=== PATIENT | female | born 1955 | race African-American/Black ===

== ENCOUNTER → 2017-01-01 | Day surgery (SDC) | payer MEDICARE, OTHER ==
[~2017-01-01] MED LIST: ADVAIR; ADVAIR 2501 DISK W/D PO; ALBUTEROL17 GM INH; AMARYL PO; AMARYL1 MG PO; AMARYL2 MG; AMARYL2 MG PO; AMLODIPINE BESY10 MG PO; ASPIRIN PO; ASPIRIN81 MG PO; BAYER CHEWABLE81 MG PO; CAPOTEN12.5 MG DOB; CARAFATE1 GM PO; CATAFLAM50 MG PO; CLOPIDOGREL75 MG PO; COREG3.125 MG PO; CRESTOR40 MG PO; CYCLOBENZAPRINE5 MG PO; DIABETIC MED PO; DIOVAN PO; DIOVAN160 MG PO; DULCOLAX10 MG/SUPP RC; EFFEXOR; EFFEXOR PO; EFFEXOR75 M2 PO; EFFIENT10 MG PO; FARXIGA5 MG PO; GABAPENTIN300 MG PO; GLUCOPHAGE500 M1 PO; GLUCOTROL PO; HYDROCHLOROTH12.5 M1 PO; HYDROCHLOROTHIA25 MG PO; IMDUR-ER30 M2 PO; JANUVIA PO; JANUVIA25 MG PO; LACTULOSE10 G/15 M1 PO; LAMISIL250 MG PO; LANTUS SOLOSTAR3 ML SUBQ; LIPITOR40 MG PO; METFORMIN HCL500 M1 PO; METFORMIN PO; NEURONTIN300 MG PO; NITROGLYCERIN0.4 MG SL; NITROGYLCERIN SUBLINGUAL; NORVASC PO; NORVASC10 MG PO; OMEPRAZOLE PO; OMEPRAZOLE40 M1 PO; PAXIL; PAXIL PO; PLAVIX PO; POTASSIUM PO; PROTONIX PO; PROTONIX20 MG PO; RANEXA500 MG PO; REGLAN5 MG PO; SYNTHROID PO; SYNTHROID0.05 MG DOB; SYNTHROID25 MCG PO; TOPROL XL 50 MG50 M1 PO; TOPROL XL 50 MG50 MG PO; TOPROL XL PO; TOUJEO SOL300 UNIT/1 SUBQ; TRIAMTERENE-HCT1 TA6 PO; TRIAMTERENE-HCT1 TA8 PO; TRIAMTERENE/HCTZ PO; VALSARTAN160 MG PO; VYTORIN 10-40 M1 TAB PO; VYTORIN PO; XIGDUO; XIGDUO PO; ZANTAC PO; ZESTRIL5 MG PO; ZETIA PO; ZOFRAN ODT4 MG PO; ZOFRAN PO; [UNRECOGNIZED DRUG - OTHER] PO
--- NOTE | ~2017-01-01 | OR ---
Unit #: [id number] #: [id number] Patient: LIZZIE ROBLEDO [id number] [address] [address] [id number] O MR#: [id number] NAME: LIZZIE ROBLEDO. ROOM: Date of Procedure: 01/01/2017 Admission Date: 01/01/2017 Surgeon: Rakesh Vickers M.D. : 1955 Attending Physician: Rakesh Vickers M.D. Primary Care Physician: Dallas Landeros M.D. OPERATIVE REPORT PREOPERATIVE DIAGNOSES Colorectal cancer surveillance. The patient has personal history of colonic polyps. PROCEDURES PERFORMED Colonoscopy and polypectomy. POSTOPERATIVE DIAGNOSES 1. Single sessile polyp in the mid ascending colon. The latter was removed using snare polypectomy. 2. Mild sigmoid and descending colon diverticulosis. 3. Rest of the examination up to cecum was normal. The quality of the prep was fair. RECOMMENDATIONS 1. Repeat colonoscopy in 5 years. 2. Follow up the results of polyp histology. SEDATION USED MAC. DESCRIPTION OF PROCEDURE Following detailed explanation of potential risks and complications of a colonoscopy, namely perforation, bleeding, and complication related to sedation, the patient was brought to GI lab and laid in the left lateral decubitus position. A digital rectal examination was performed, which was normal. Lubricated tip of the Olympus video colonoscope was inserted through the anus and advanced under direct vision. The scope was advanced past rectosigmoid into descending colon. Scant small diverticula were seen in this area. The scope tip was then navigated all the way up to cecum with visualization of the ileocecal valve and the appendiceal orifice. Preparation was fair with good visualization and photodocumentation was obtained. Successive segments of the colonic mucosa were examined upon withdrawal. Single small sessile polyp was noted in the mid ascending colon. This was about 5 mm in size. It was removed using snare polypectomy. The polyp was retrieved and sent for histology. No additional polyps were noted. Other than the scant diverticula seen on the left side, no other abnormalities were found. The patient did not have any hemorrhoids at anal verge. The scope was then withdrawn and the patient returned to the recovery area. She tolerated the procedure without any postprocedure complications. Unit #: [id number] #: [id number] Patient: LIZZIE ROBLEDO Dictated by... Helen Parra/camacho TD: 01/01/2017 13:22 JOB #: [id number] OPERATIVE REPORT X Rakesh Vickers MD X PROCEDURE OPERATIVE NOTE
== END | disposition home or self-care (01) ==
LOC: COPS 08:42
DX: Z12.11 Encounter for screening for malignant neoplasm of colon (principal); D12.2 Benign neoplasm of ascending colon; K57.30 Diverticulosis of large intestine without perforation or abscess without bleeding; E11.9 Type 2 diabetes mellitus without complications; E03.9 Hypothyroidism, unspecified; E78.5 Hyperlipidemia, unspecified; I11.0 Hypertensive heart disease with heart failure; I50.9 Heart failure, unspecified; J45.909 Unspecified asthma, uncomplicated; Z86.010 Personal history of colon polyps; Z91.040 Latex allergy status; Z79.4 Long term (current) use of insulin; Z79.82 Long term (current) use of aspirin; Z79.899 Other long term (current) drug therapy; Z95.5 Presence of coronary angioplasty implant and graft; Z98.84 Bariatric surgery status; Z90.710 Acquired absence of both cervix and uterus; Z86.73 Personal history of transient ischemic attack (TIA), and cerebral infarction without residual deficits
CPT/HCPCS: 82947; 88305; J2250

== ENCOUNTER → 2017-01-17 | Outpatient (CLI) | payer MEDICARE, OTHER ==
--- NOTE | ~2017-01-17 | MR17 ---
[facility] A Service of [facility] & [facility] RADIOLOGY TEXT RESULTS PATIENT: LIZZIE ROBLEDO LOCATION: [facility] : 53 UNIT #: [id number] AGE: [address]: Parker Watkins II, MD SEX: F ORDER DR: [id number] [facility] [address] [place], [place] [address] [id number] O MR#: [id number] Acc #: [id number] NAME: LIZZIE ROBLEDO. : 1955 SEX: F STUDY DATE/TIME: 01/17/2017 9:11 UNIT: [facility] ROOM: STUDY DESCRIPTION: MR Brain WWo Contrast Attending Physician: Parker Watkins II., M.D. Referring Physician: Parker Watkins II., M.D. Ordering Physician: Parker Watkins II., M.D. Primary Care Physician: Mo Mcmahon M.D. MRI CENTER REPORT This report is preliminary unless electronic signature is present. EXAM MRI of the brain with and without contrast dated 01/17/2017 COMPARISON MRI brain without contrast dated 09/25/2016. HISTORY Migraine headaches for 6-7 years. FINDINGS Multisequence, multiplanar imaging of the brain was obtained with and without contrast. GFR measured greater than 60. 17 mL of MultiHance was administered intravenously. No acute stroke, space-occupying intracranial mass, mass effect, midline shift or hydrocephalus. Scattered few hyperintense T2-signal lesions are noted in the subcortical white matter and periventricular white matter particularly in bifrontal lobes. They are probably stable. Some of the mild changes are likely related to difference in slice selection. No acute stroke, hydrocephalus, hemorrhage, enhancing mass or midline shift. Thin coronal T2 sequence through the hippocampal formation does not demonstrate any significant abnormality. Visualized sella with the pituitary gland and pineal region are unremarkable. The left maxillary antrum is asymmetrically smaller when compared to the right and is completely opacified. Cataract surgery is seen in the right. Mastoid air cells are well-aerated. IMPRESSION 1. Scattered nonspecific nonenhancing hyperintense T2-signal lesions are noted in the white matter, likely related to mild to moderate chronic microvascular ischemic change or migraine given the history. 2. Asymmetrical decreased caliber of the left maxillary antrum is noted with complete opacification. It is likely related to chronic maxillary sinusitis and hypoplastic sinus/silent sinus syndrome, benign entity. [facility]. [facility] A Service of [facility] & [facility] RADIOLOGY TEXT RESULTS PATIENT: LIZZIE ROBLEDO LOCATION: [facility] : 54 UNIT #: [id number] AGE: [address]: Parker Watkins II, MD SEX: F ORDER DR: Dictated by... Cesar Elizabeth M.D. THIS IS AN ELECTRONICALLY VERIFIED REPORT Cesar Elizabeth M.D. at 01/19/2017 3:50 PM CPR/mjs TD: 01/18/2017 13:31 JOB #: [id number] MRI CENTER REPORT COPY
[2017-01-17 15:37] LABS: POC - CREATININE 0.83 mg/dL (0.44-1.03); POC - GFR >60.0 mL/min (>60)
== END | disposition home or self-care (01) ==
LOC: CMRI 08:34
PROVIDERS: Psychiatry & Neurology Neurology
DX: G43.109 Migraine with aura, not intractable, without status migrainosus (principal); G93.89 Other specified disorders of brain; J34.89 Other specified disorders of nose and nasal sinuses
CPT/HCPCS: 70553; 82565; A9577

== ENCOUNTER → 2017-01-22 | Outpatient (CLI) | payer MEDICARE, OTHER ==
--- NOTE | ~2017-01-22 | CR63 ---
[facility] A Service of [facility] & [facility] RADIOLOGY TEXT RESULTS PATIENT: LIZZIE ROBLEDO LOCATION: [facility] : 53 UNIT #: [id number] AGE: [address]: Madalyn Bella SEX: F ORDER DR: [id number] [facility] [address] [place], [place] [address] [id number] O MR#: [id number] Acc #: [id number] NAME: LIZZIE ROBLEDO. : 1955 SEX: F STUDY DATE/TIME: 01/22/2017 12:43 UNIT: [facility] ROOM: STUDY DESCRIPTION: CR Chest 2 View Attending Physician: Madalyn Bella A.P.R.N. Referring Physician: Madalyn Bella A.P.R.N. Ordering Physician: Madalyn Bella A.P.R.N. Primary Care Physician: Mo Mcmahon M.D. MEDICAL IMAGING REPORT This report is preliminary unless electronic signature is present EXAM PA and lateral chest, 01/22. COMPARISON 11/14/2016 HISTORY Right-sided chest pain and shortness of breath and cough for 3 weeks. TECHNIQUE PA and lateral views are obtained. FINDINGS The cardiovascular configuration of the chest remains normal. Lungs are clear. Compared with the studies of November 14, there has been no change. CONCLUSION No active disease. Dictated by... Tremayne Garcia M.D. THIS IS AN ELECTRONICALLY VERIFIED REPORT Tremayne Garcia M.D. at 01/23/2017 8:00 AM CAEMRON/chano TD: 01/22/2017 15:52 JOB #: [id number] MEDICAL IMAGING REPORT COPY
== END | disposition home or self-care (01) ==
LOC: CRAD 12:28
DX: R07.89 Other chest pain (principal); R06.02 Shortness of breath; G47.33 Obstructive sleep apnea (adult) (pediatric)
CPT/HCPCS: 71020

== ENCOUNTER 2017-01-27 16:51 | Emergency (ER) | payer MEDICARE, OTHER ==
--- NOTE | ~2017-01-27 | CR72 ---
[facility] A Service of [facility] RADIOLOGY TEXT RESULTS PATIENT: LIZZIE ROBLEDO LOCATION: [facility] : 54 UNIT #: [id number] AGE: [address]: Nieves Watson MD SEX: F ORDER DR: [id number] [facility] [address] [place], [place] [address] [id number] E MR#: [id number] Acc #: [id number] NAME: LIZZIE ROBLEDO. : 1955 SEX: F STUDY DATE/TIME: 01/27/2017 17:23 UNIT: [facility] ROOM: STUDY DESCRIPTION: CR Chest Single View Portable Attending Physician: Nieves Watson M.D. Ordering Physician: Nieves Watson M.D. Primary Care Physician: Mo Mcmahon M.D. MEDICAL IMAGING REPORT This report is preliminary unless electronic signature is present EXAM Portable chest, 01/27/2017 HISTORY Right lung pain off and one view for 2 weeks. Short of air. Pain at the top of the left lung. COMMENT Single frontal portable view of the chest timed 17:23 01/27/2017, compared to a study from 01/22/2017. There is postoperative change upper abdomen. Lung volumes are low and mildly diminished with a small amount of airspace disease at bases fairly linear bilaterally and probably some atelectasis. No acute congestive failure. Cardiac silhouette size is top normal. No pneumothorax. No pleural effusion. IMPRESSION Probably some mild bibasilar atelectasis with lower lung volumes when comparison is made to 01/22/2017. Dictated by... Lo Figueroa M.D. THIS IS AN ELECTRONICALLY VERIFIED REPORT Lo Figueroa M.D. at 01/29/2017 7:45 AM ERMA/chano TD: 01/28/2017 21:47 JOB #: [id number] [facility] A Service of [facility] RADIOLOGY TEXT RESULTS PATIENT: LIZZIE ROBLEDO LOCATION: [facility] : 53 UNIT #: [id number] AGE: [address]: Nieves Watson MD SEX: F ORDER DR: MEDICAL IMAGING REPORT COPY
--- NOTE | ~2017-01-27 | CT16 ---
[facility] A Service [facility] RADIOLOGY TEXT RESULTS PATIENT: LIZZIE ROBLEDO LOCATION: [facility] : 53 UNIT #: [id number] AGE: [address]: Nieves Watson MD SEX: F ORDER DR: [id number] [facility] [address] [place], [place] [address] [id number] E MR#: [id number] Acc #: [id number] NAME: LIZZIE ROBLEDO. : 1955 SEX: F STUDY DATE/TIME: 01/27/2017 18:41 UNIT: [facility] ROOM: STUDY DESCRIPTION: CT Angio Chest for PE Attending Physician: Nieves Watson M.D. Ordering Physician: Nieves Watson M.D. Primary Care Physician: Mo Mcmahon M.D. MEDICAL IMAGING REPORT This report is preliminary unless electronic signature is present EXAM CT angiogram chest with IV contrast, 01/27/2017 HISTORY Shortness of air and cough for 3 weeks. Chest pain. Elevated D-dimer. TECHNIQUE This CT exam was performed with one or more of the following radiation dose reduction techniques: automatic exposure control, adjustment of mA and/or kV according to patient size, and iterative reconstruction. FINDINGS IV contrast enhanced CT angiogram of the chest was performed with 3-D reconstructions. No pulmonary infiltrates or effusions. No pulmonary embolus is identified but sensitivity is limited by contrast bolus timing, with limited evaluation of the peripheral lower lobe pulmonary arteries. Normal-caliber pulmonary arteries. Normal caliber thoracic aorta. No adenopathy. No pericardial thickening or effusion. Small hiatal hernia. Postop changes of gastric bypass surgery, partly visualized. IMPRESSION 1. No acute findings are identified. No evidence of active disease. 2. No pulmonary embolus is demonstrated, but sensitivity is partly limited by contrast bolus timing with suboptimal opacification of the peripheral lower lobe pulmonary arteries. 3. Normal caliber pulmonary arteries bilaterally. 4. Lungs are clear. Dictated by... Kade Weller M.D. [facility] A Service of [facility] RADIOLOGY TEXT RESULTS PATIENT: LIZZIE ROBLEDO [id number] 53 UNIT #: [id number] AGE: [address]: Nieves Watson MD SEX: F ORDER DR: THIS IS AN ELECTRONICALLY VERIFIED REPORT Kade Weller M.D. at 01/29/2017 12:25 PM DFDel/chano TD: 01/29/2017 00:43 JOB #: [id number] MEDICAL IMAGING REPORT COPY
[2017-01-27 17:19] LABS: BASOPHIL% 0.4 % (0-2.5); EOSINOPHIL# 0.1 X10e3 (0-0.7); EOSINOPHIL% 1.1 % (0.0-7.0); HEMATOCRIT 39.8 % (35.0-45.0); HEMOGLOBIN 12.6 gm/dL (12.0-16.0); LYMPHOCYTE# 1.6 X10e3 (1.0-3.5); LYMPHOCYTE% 28.6 % (17.0-45.0); MEAN CELL VOLUME 81.8 FL (83-96); MEAN CORPUSCULAR HEMOGLOBIN 25.9 PG (28-34); MEAN CORPUSCULAR HGB CONC 31.6 g/dL (30-36); MEAN PLATELET VOLUME 9.3 FL (6.5-11.5); MONOCYTE# 0.5 X10e3 (0-1.0); MONOCYTE% 8.5 % (3.0-12.0); NEUTROPHIL# 3.5 X10e3 (1.5-7.1); NEUTROPHIL% 61.4 % (40-75); PLATELET COUNT 231 X10e3 (140-420); RED BLOOD COUNT 4.87 X10e (3.90-5.30); RED CELL DISTRIBUTION WIDTH 14.8 % (11.0-15.5); WHITE BLOOD COUNT 5.7 X10e3 (4.0-10.5)
[2017-01-27 17:20] LABS: DIFF IND NO
[2017-01-27 17:42] LABS: BLOOD UREA NITROGEN 11 mg/dL (9-23); BUN/CREATININE RATIO 12.22; CALCIUM SERUM 8.9 mg/dL (8.4-10.2); CARBON DIOXIDE 30 mmol/L (22-31); CHLORIDE 103 mmol/L (100-111); CREATININE SERUM 0.9 mg/dL (0.6-1.4); GLOM FILT RATE Estimated ABOVE60 mL/min (>60); GLUCOSE FASTING 119 mg/dL (70-110); POTASSIUM 3.6 mmol/L (3.5-5.1); SODIUM 140 mmol/L (135-145)
== END 2017-01-27 20:30 | disposition home or self-care (01) ==
LOC: CED 16:51
PROVIDERS: Emergency Medicine
DX: R09.1 Pleurisy (principal)
CPT/HCPCS: 36415; 71010; 71275; 80048; 85025; 85379; 99284; Q9967

== ENCOUNTER → 2017-04-24 | Outpatient (CLI) | payer OTHER, MEDICARE ==
--- NOTE | ~2017-04-24 | MY11 ---
[facility] A Service of [facility] RADIOLOGY TEXT RESULTS PATIENT: LIZZIE ROBLEDO LOCATION: [facility] : 53 UNIT #: [id number] AGE: [address]: Mo Mcmahon MD SEX: F ORDER DR: [id number] [place] [id number] O MR#: [id number] Acc #: [id number] NAME: LIZZIE ROBLEDO : 1955 SEX: F STUDY DATE/TIME: 04/24/2017 8:59 UNIT: [facility] ROOM: STUDY DESCRIPTION: MY Mammogram Screening Dig Holger Attending Physician: Mo Mcmahon M.D. Referring Physician: Mo Mcmahon M.D. Ordering Physician: Mo Mcmahon M.D. Primary Care Physician: Mo Mcmahon M.D. MEDICAL IMAGING REPORT This report is preliminary unless electronic signature is present. EXAM Digital screening mammogram 04/24/2017 [facility] HISTORY 62-year-old woman positive family history, mother age 70. Annual screen. COMPARISON Mammograms date to 05/29/2008 with most recent screening comparison 03/06/2016 FINDINGS Digital imaging of each breast was completed utilizing a two-view examination of each breast in craniocaudal and mediolateral-oblique projections. Review and interpretation of digital mammograms include a second review in conjunction with FDA-approved CAD device. There is a normal parenchymal presentation bilaterally consistent with the patient's age. There are no breast masses imaged and no parenchymal asymmetry is visualized. There are no suspicious microcalcifications and I see no focal architectural disturbance. IMPRESSION Negative screening digital mammogram. One-year followup recommended. Patients over the age of 40 are entered into a reminder system with target due date for the next mammogram. A result letter will also be sent to the patient. BIRADS: 1 Negative Dictated by... [facility] A Service of [facility] RADIOLOGY TEXT RESULTS PATIENT: LIZZIE ROBLEDO LOCATION: [facility] : 53 UNIT #: [id number] AGE: [address]: Mo Mcmahon MD SEX: F ORDER DR: Anjel Dominguez M.D. THIS IS AN ELECTRONICALLY VERIFIED REPORT Anjel Dominguez M.D. at 04/24/2017 2:38 PM JBB/cindy TD: 04/24/2017 11:56 JOB #: [id number] MEDICAL IMAGING REPORT Page 1 of 1
== END | disposition home or self-care (01) ==
LOC: SMAM 04-13 08:30
DX: Z12.31 Encounter for screening mammogram for malignant neoplasm of breast (principal); Z80.3 Family history of malignant neoplasm of breast
CPT/HCPCS: G0202

== ENCOUNTER → 2017-07-02 | Outpatient (CLI) | payer MEDICARE, OTHER ==
--- NOTE | ~2017-07-02 | US136 ---
[facility] A Service of [facility] & [facility] RADIOLOGY TEXT RESULTS PATIENT: LIZZIE ROBLEDO LOCATION: [facility] : 53 UNIT #: [id number] AGE: [address]: Tremayne Up DPM SEX: F ORDER DR: [id number] [facility] [address] [place], [place] [address] [id number] O MR#: [id number] Acc #: [id number] NAME: LIZZIE ROBLEDO. : 1955 SEX: F STUDY DATE/TIME: 07/02/2017 10:56 UNIT: [facility] ROOM: STUDY DESCRIPTION: U/L [facility] Art Study [facility] Bil Attending Physician: Tremayne pU D.P.M. Referring Physician: Tremayne Up D.P.M. Ordering Physician: Tremayne Up D.P.M. Primary Care Physician: Mo Mcmahon M.D. MEDICAL IMAGING REPORT This report is preliminary unless electronic signature is present EXAM Bilateral ankle-brachial indices INDICATION Claudication. Patient reports left calf claudication for 1.5 years with numbness in both lower extremities since November 2016. TECHNIQUE Sequential pressures were obtained through both lower extremities and pulse volume recordings were generated. FINDINGS Patient's ankle-brachial indices are normal bilaterally measuring 1.06 at the dorsalis pedis artery on the right and 1.21 at the posterior tibial artery on the right. The patient's ankle-brachial index on the left is 1.15 and at the dorsalis pedis artery on the left is 1.11. The patient's toe-brachial index on the right is 0.97 and on the left is 0.97. There is some dampening of the wave form of the pulse volume recording within the right great toe which is of doubtful clinical significance given normal toe-brachial index. IMPRESSION Normal bilateral ankle-brachial indices. Dictated by... Rachel Avila M.D. THIS IS AN ELECTRONICALLY VERIFIED REPORT Rachel Avila M.D. at 07/03/2017 5:00 PM AFF/ljd STS. [facility] A Service of [facility] & [facility] RADIOLOGY TEXT RESULTS PATIENT: LIZZIE ROBLEDO LOCATION: [facility] : 53 UNIT #: [id number] AGE: [address]: Tremayne UpM SEX: F ORDER DR: TD: 07/03/2017 04:22 JOB #: [id number] MEDICAL IMAGING REPORT Page 1 of 1 COPY
== END | disposition home or self-care (01) ==
LOC: CNIV 10:44
DX: I73.9 Peripheral vascular disease, unspecified (principal)
CPT/HCPCS: 93922